=== PATIENT | female | born 1955 | race African-American/Black ===

== ENCOUNTER 2017-02-24 01:11 | Emergency (ER) | payer MEDICAID ==
[~2017-02-24] VITALS: Ht 167.6 cm; Wt 48.0 kg
[~2017-02-24 01:11] MED LIST: ALLO100T PO; AMLO2.5T45 PO; ASPI-1158 PO; BACL-141 PO; COLC0.6T66 PO; MAGN400T26 PO; MEGE400O PO; METR70GE17 VG; OMEP20CA10 PO; PROM12.511 PO; TRAM50TA3 PO; TRAZ-132 PO; VENL37.55 PO; [UNRECOGNIZED DRUG - CODE] PO
[2017-02-24 02:23] LABS: CHLORIDE 106 mEq/L (98-107)
[2017-02-24 02:28] LABS: BASOPHILS % 1.3 % (0.0-2.0); EOSINOPHILS % 1.1 % (0.0-5.0); HEMATOCRIT. 36.8 % (36.0-48.0); HEMOGLOBIN. 12.4 g/dL (12.0-16.0); MEAN CORPUSCULAR HEMOGLOBIN 31.8 pg (28.0-32.0); MEAN CORPUSCULAR VOLUME 94.2 fL (81.0-99.0); MEAN PLATELET VOLUME 9.3 fl (7.4-10.4); MONOCYTES % 11.6 % (2.0-8.0); PLATELET 56 x1000/uL (130-400); RED BLOOD CELL COUNT 3.91 mill/uL (4.2-5.4); RED CELL DISTRIBUTION WIDTH 13.8 % (11.6-14.6)
[2017-02-24 02:31] LABS: CARBON DIOXIDE 25 mEq/L (21-32); ETHANOL BLOOD 74 mg/dL
[2017-02-24] MEDS ORDERED: IBUPROFEN 400MG TABLET PO NR (04:45)
[2017-02-24] MEDS ORDERED: POTASSIUM CHLORIDE 20MEQ TABLET SR PO NR (04:45)
[2017-02-24] MEDS ORDERED: ACETAMINOPHEN 325MG TABLET PO ONE (06:15)
[2017-02-24 06:40] VITALS: BP 162/100
== END 2017-02-24 06:42 | disposition home or self-care (01) ==
LOC: ER 01:28
DX: T51.0X1A Toxic effect of ethanol, accidental (unintentional), initial encounter (principal); G92 Toxic encephalopathy; M79.605 Pain in left leg; M79.602 Pain in left arm; M54.30 Sciatica, unspecified side; F12.10 Cannabis abuse, uncomplicated; J45.909 Unspecified asthma, uncomplicated; M41.9 Scoliosis, unspecified; Z88.8 Allergy status to other drugs, medicaments and biological substances; Y92.018 Other place in single-family (private) house as the place of occurrence of the external cause
CPT/HCPCS: 36415; 70450; 80053; 85025; 99285; G0482; Z7610

== ENCOUNTER 2017-11-16 18:35 | Emergency (ER) | payer MEDICAID ==
[~2017-11-16] VITALS: Ht 167.6 cm; Wt 65.0 kg
[2017-11-16] MEDS ORDERED: SODIUM CHLORIDE 0.9% 1,000 ML IV ONE (20:15)
[2017-11-16] MEDS ORDERED: MORPHINE SULFATE 4 MG/ML CPJ (NOT FOR IM USE) IV ONE (20:15)
[2017-11-16] MEDS ORDERED: ONDANSETRON HCL 4MG/2ML VIAL IV ONE (20:15)
[2017-11-16 21:37] LABS: BASOPHILS % 1.1 % (0.0-2.0); EOSINOPHILS % 0.1 % (0.0-5.0); HEMATOCRIT. 35.7 % (36.0-48.0); HEMOGLOBIN. 12.1 g/dL (12.0-16.0); LYMPHOCYTES % 24.2 % (20.0-50.0); MEAN CORPUSCULAR HEMOGLOBIN 31.5 pg (28.0-32.0); MEAN CORPUSCULAR VOLUME 92.8 fL (81.0-99.0); MEAN PLATELET VOLUME 8.7 fl (7.4-10.4); MONOCYTES % 12.1 % (2.0-8.0); NEUTROPHILS % 62.5 % (40.0-76.0); PLATELET 81 x1000/uL (130-400); RED BLOOD CELL COUNT 3.84 mill/uL (4.2-5.4); RED CELL DISTRIBUTION WIDTH 12.9 % (11.6-14.6)
[2017-11-16 21:41] LABS: CHLORIDE 108 mEq/L (98-107); INR 1.4
[2017-11-16] MEDS ORDERED: IOHEXOL-300 100 ML BOTTLE ONE (22:20)
[2017-11-16 23:05] LABS: CLARITY URINE CLEAR (CLEAR); COLOR URINE DARK YELLOW (YELLOW); KETONES URINE TRACE (NEGATIVE); LEUKOCYTE ESTERASE URINE TRACE (NEGATIVE); NITRITE URINE NEGATIVE (NEGATIVE); OCCULT BLOOD URINE NEGATIVE (NEGATIVE); PROTEIN URINE NEGATIVE (NEGATIVE); SPECIFIC GRAVITY URINE 1.016 (1.005-1.030); UROBILINOGEN URINE >8.0 E.U./dL (0.2-1.0)
[2017-11-17] MEDS ORDERED: AMLODIPINE 5MG TABLET PO NR
[2017-11-17] MEDS ORDERED: LISINOPRIL 10MG TABLET PO NR
[2017-11-17 03:19] VITALS: BP 130/87
== END 2017-11-17 03:19 | disposition home or self-care (01) ==
LOC: ER 18:44
DX: R10.9 Unspecified abdominal pain (principal); I10 Essential (primary) hypertension; M81.0 Age-related osteoporosis without current pathological fracture; J45.909 Unspecified asthma, uncomplicated; R16.1 Splenomegaly, not elsewhere classified; M10.9 Gout, unspecified; Z79.82 Long term (current) use of aspirin; Z86.19 Personal history of other infectious and parasitic diseases
CPT/HCPCS: 36415; 74177; 80053; 81003; 83690; 85025; 85610; 96361; 96374; 96375; 99285; J2270; J2405; J7030; Q9967; Z7610

== ENCOUNTER 2017-11-17 06:34 | Emergency (ER) | payer MEDICAID ==
[~2017-11-17] VITALS: Ht 167.6 cm; Wt 52.0 kg
[2017-11-17 06:53] VITALS: BP 116/93
== END 2017-11-17 07:33 | disposition left against medical advice (07) ==
LOC: ER 07:30
DX: M25.572 Pain in left ankle and joints of left foot (principal); Z53.21 Procedure and treatment not carried out due to patient leaving prior to being seen by health care provider

== ENCOUNTER 2017-11-17 08:48 | Emergency (ER) | payer MEDICAID ==
[~2017-11-17] VITALS: Ht 167.6 cm; Wt 54.0 kg
[2017-11-17] MEDS ORDERED: HYDROCODONE/ACETAMINOPHEN 5/325MG TABLET PO ONE (10:00)
[2017-11-17 10:22] VITALS: BP 110/83
== END 2017-11-17 11:38 | disposition home or self-care (01) ==
LOC: ER 09:13
DX: S80.12XA Contusion of left lower leg, initial encounter (principal); M10.9 Gout, unspecified; I10 Essential (primary) hypertension; F17.210 Nicotine dependence, cigarettes, uncomplicated; F12.90 Cannabis use, unspecified, uncomplicated
CPT/HCPCS: 73610; 73630; 99284